=== PATIENT | male | born 1985 | race Two or more races ===

== ENCOUNTER 2018-11-02 01:44 | Emergency (ER) | payer OTHER ==
[2018-11-02 02:20] VITALS: BP 118/78; PULSE 75; TEMP 98.2; BMI 21.3
[2018-11-02] MEDS ORDERED: IBUPROFEN 600 MG TABLET (FP) PO ONE (02:22)
[2018-11-02] MEDS ORDERED: CYCLOBENZAPRINE HCL 10 MG TABLET (FP) PO ONE (02:22)
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
[2018-11-02] MEDS ORDERED: CYCLOBENZAPRINE HCL 10 MG TABLET (FP) ONE (02:37)
[2018-11-02] MEDS ORDERED: IBUPROFEN 400 MG TABLET (FP) PO ONE (02:37)
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
== END 2018-11-02 04:19 | disposition home or self-care (01) ==
LOC: JER 01:44
DX: S13.4XXA Sprain of ligaments of cervical spine, initial encounter (principal); V43.52XA Car driver injured in collision with other type car in traffic accident, initial encounter; Y92.488 Other paved roadways as the place of occurrence of the external cause; Y93.89 Activity, other specified; Y99.8 Other external cause status
CPT/HCPCS: 99281-25

== ENCOUNTER 2023-06-23 01:05 | Emergency (ER) | payer OTHER ==
[2023-06-23 01:11] VITALS: BP 90/59; PULSE 60; RESP 18; TEMP 97.6; BMI 25.9
[2023-06-23] MEDS ORDERED: FAMOTIDINE 20 MG/50 ML IVPB 20 MG/50 ML MG IVPB ONE ×2 (01:40→02:19)
[2023-06-23] MEDS ORDERED: MAG HYDROX/AL HYDROX/SIMETH 30 ML UNIT-DOSE CUP PO ONE (01:40)
[2023-06-23] MEDS ORDERED: ACETAMINOPHEN 1000 MG/100 ML BAG IVPB ONE ×2 (01:40→10:44)
[2023-06-23] MEDS ORDERED: SODIUM CHLORIDE 0.9% 500 ML INFUS.BAG IV ONE (01:40)
[2023-06-23] MEDS ORDERED: SUCRALFATE 1 GM TABLET (FP) PO ONE (01:47)
[2023-06-23] MEDS ORDERED: ACETAMINOPHEN INJECTION 100 ML IVPB ONE ×2 (02:19→11:06)
[2023-06-23] MEDS ORDERED: MAG HYDROX/AL HYDROX/SIMETH 30 ML UNIT-DOSE CUP ONE (02:19)
[2023-06-23] MEDS ORDERED: SUCRALFATE 1 GM TABLET (FP) ONE (02:19)
[2023-06-23 02:53] LABS: BASO % 0.2 % (0-2.0); EOS % 0.9 % (0-4.5); HEMATOCRIT 38.1 % (35.4-49); HEMOGLOBIN 13.2 GM/dL (11.7-16.9); LYMPH % 59.9 % (8-40); MCH 30.6 pg (25.7-33.7); MCHC 34.6 g/dl (32.0-35.9); MEAN CELL VOLUME 88.4 fl (80-96); MEAN PLT VOLUME 9.5 fl (7.5-11.1); MONO % 8.5 % (3.8-10.2); NEUT % 30.5 % (42.8-82.8); PLATELET COUNT 181 10^3/uL (134-434); RBC 4.31 M/mm3 (4.00-5.60); RDW 13.3 % (11.9-15.9); WHITE BLOOD COUNT 7.7 K/mm3 (4.0-10.0)
[2023-06-23 03:23] LABS: POTASSIUM 3.2 mmol/L (3.5-5.1)
[2023-06-23 03:25] LABS: CALCIUM 8.3 mg/dL (8.5-10.1)
[2023-06-23 03:26] LABS: ALBUMIN 3.4 g/dl (3.4-5.0); BLOOD UREA NITROGEN 8.5 mg/dL (7-18)
[2023-06-23 03:28] LABS: CREATININE 0.8 mg/dL (0.55-1.3)
[2023-06-23 03:30] LABS: TOT PROT 6.3 g/dl (6.4-8.2)
[2023-06-23 03:31] LABS: BILIRUBIN,TOTAL 0.2 mg/dL (0.2-1)
[2023-06-23] MEDS ORDERED: LACTATED RINGERS SOLUTION 1000 ML INFUS.BAG IV ONE (10:44)
== END 2023-06-23 11:11 | disposition left against medical advice (07) ==
LOC: JER 01:05
PROC: 3E033GC Introduction of Other Therapeutic Substance into Peripheral Vein, Percutaneous Approach (ICD-10-PCS; principal; 2023-06-23)
PROC: 3E033NZ Introduction of Analgesics, Hypnotics, Sedatives into Peripheral Vein, Percutaneous Approach (ICD-10-PCS; 2023-06-23)
DX: R10.13 Epigastric pain (principal); R11.2 Nausea with vomiting, unspecified; K59.00 Constipation, unspecified; R63.4 Abnormal weight loss
CPT/HCPCS: 36415; 74177-TC; 76705-TC; 80053; 83690; 85025; 93005; 93010; 99285-25; Q9967